=== PATIENT | female | born 1980 | race Caucasian/White ===

== ENCOUNTER 2017-01-05 18:29 | Emergency (ER) | payer MEDICAID ==
[~2017-01-05] VITALS: Ht 162.6 cm; Wt 66.0 kg
[~2017-01-05 18:29] MED LIST: ACET500C5 PO; CEPH-443 PO; CIPR500T4 PO; HYDR-3498 PO; IBUP-1542 PO; IBUP400T22 PO; PHEN-538 PO; PROM6.25 PO; [UNRECOGNIZED DRUG - CODE] VG
[2017-01-05 18:39] VITALS: Ht 162.6 cm; Wt 66.0 kg
[2017-01-05] MEDS ORDERED: FAMOTIDINE 20 MG INJ IV ONE (20:00)
[2017-01-05] MEDS ORDERED: LIDOCAINE/MYLANTA 40 ML BTL PO ONE (20:00)
[2017-01-05 20:13] LABS: URINE BLOOD (Dip) POC 2+ (NEGATIVE)
[2017-01-05 20:24] LABS: BASOPHILS % 0.5 % (0.0-2.0); EOSINOPHILS # 0.1 10^3/ul (0.0-0.5); EOSINOPHILS % 1.2 % (0.0-7.0); HEMOGLOBIN 13.5 g/dl (12.0-16.0); LYMPHOCYTES # 1.4 10^3/ul (0.8-2.9); LYMPHOCYTES % 16.1 % (15.0-51.0); MEAN CORPUSCULAR HEMOGLOBIN 29.1 pg (29.0-33.0); MEAN CORPUSCULAR HGB CONC 33.8 g/dl (32.0-37.0); MEAN CORPUSCULAR VOLUME 86.2 fl (82.0-101.0); MONOCYTE # 0.6 10^3/ul (0.3-0.9); MONOCYTES % 6.7 % (0.0-11.0); NEUTROPHILS % 75.3 % (39.0-77.0); PLATELET COUNT 263 10^3/UL (140-415); RED BLOOD COUNT 4.64 10^6/ul (4.20-5.40); RED CELL DISTRIBUTION WIDTH 12.1 % (11.5-14.5); WHITE BLOOD COUNT 8.5 10^3/ul (4.8-10.8)
[2017-01-05 20:36] LABS: ADD UMIC YES; UR ASCORBIC ACID 20 mg/dL (NEGATIVE); UR BILIRUBIN (Dip) NEGATIVE (NEGATIVE); UR BLOOD (Dip) 1+ mg/dL (NEGATIVE); UR CLARITY CLEAR (CLEAR); UR COLOR YELLOW (YELLOW); UR GLUCOSE (Dip) NEGATIVE (NEGATIVE); UR KETONES (Dip) NEGATIVE (NEGATIVE); UR LEUKOCYTE ESTERASE (Dip) 2+ Leu/ul (NEGATIVE); UR NITRITE (Dip) NEGATIVE (NEGATIVE); UR RBC 7 /HPF (0-5); UR SPECIFIC GRAVITY (Dip) 1.017 (1.003-1.030); UR SQUAMOUS EPITHELIAL CELL FEW /HPF (FEW); UR TOTAL PROTEIN (Dip) NEGATIVE (NEGATIVE); UR UROBILINOGEN (Dip) NEGATIVE (NEGATIVE)
[2017-01-05 20:51] LABS: ALBUMIN 4.3 g/dl (3.3-4.9); ALBUMIN/GLOBULIN RATIO 1.3; BILIRUBIN,INDIRECT 0.1 mg/dl (0-1.1); BILIRUBIN,TOTAL 0.1 mg/dl (0.2-1.3); CALCIUM 9.5 mg/dl (8.4-10.2); CREATININE 0.83 mg/dl (0.44-1.00); POTASSIUM 3.9 mmol/L (3.5-5.1); TOTAL PROTEIN 7.6 g/dl (6.1-8.1)
[2017-01-05 22:08] VITALS: TEMP 98.1
--- NOTE | 2017-01-05 22:35 | RADRPT ---
PROCEDURE: RENAL ULTRASOUND: CLINICAL INDICATION: 36 years of age, female . right flank pain . COMPARISON: None available. TECHNIQUE: Multiple transverse and longitudinal sonographic torrez scale images of the kidneys and adonay dder were obtained, supplemented with color, power, and spectral Doppler imaging. FINDINGS: Right kidney: Length: 9.2 cm. Appearance: Normal parenchymal appearance. Negative for hydronephrosis. Left kidney: Length: 9.5 cm. Appearance: Normal parenchymal appearance. Negative for hydronephrosis. Bladder: Normal. Ureteral jets: Present bilaterally. Additional comment: There is cholelithiasis. IMPRESSION: Normal renal ultrasound. Negative for evidence of renal calculi or hydronephrosis. Cholelithiasis. Please see gallbladder ultrasound reported separately. RPTAT: HCTS Physician Bello Date Time Electronically viewed and signed by Physician Bello on 01/05/2017 22:34 /
--- NOTE | 2017-01-05 22:38 | RADRPT ---
PROCEDURE: Limited ultrasound of the gallbladder. CLINICAL INDICATION: 36 years of age, female. Abdominal pain TECHNIQUE: Multiple real-time longitudinal and transverse images of the gallbladder and the bile d ucts were acquired utilizing a curved array transducer. Images were reviewed on a high-resolution [facility] workstation. COMPARISON: None available. FINDINGS: Pancreas: Visualized portions normal. Liver appearance: Mildly echogenic parenchyma Liver length: 14.9 cm Bile Ducts: Negative for intrahepatic biliary duct dilatation. Common bile duct measures at upper l imits of normal. CBD: 0.6 cm. Gallbladder: Multiple calculi layer dependently in the gallbladder. Gallbladder is moderately disten ded and gallbladder wall measures 2 mm. Main portal vein is patent with hepatopetal flow. Right kidney length: 10.1 cm. Right kidney appearance: Normal. Other: None. IMPRESSION: Cholelithiasis without evidence of acute cholecystitis. Common bile duct measures at the upper limi ts of normal without intrahepatic biliary duct dilatation. Recommend correlation with liver tests t o rule out biliary stasis. Mildly echogenic liver parenchyma and may indicate mild hepatic steatosis. RPTAT: HCTS Physician Bello Date Time Electronically viewed and signed by Physician Bello on 01/05/2017 22:37 /
[2017-01-05] MEDS ORDERED: FAMO-96 PO (23:03)
[2017-01-05 23:18] VITALS: BP 119/67; PULSE 66; RESP 16
--- NOTE | 2017-01-05 23:42 | ERD ---
ER Documentation Chief Complaint Date/Time DATE: 01/05/17 TIME: 23:39 Chief Complaint upper abd pain radaiting to back since 1 hour ago HPI 36-year-old female patient with no significant past medical history presents to the ED complaining of right-sided back pain and right and left upper abdominal pain that started intermittently for 2 hours. States that she ate a turkey sandwich and exacerbated her pain. Reports that this slightly feels like her kidney stones. States that she also has slight chest pain. Denies any family history of heart attacks. Denies any diarrhea, nausea, vomiting, constipation, fever, chills, wheezing, shortness of breath. ROS All systems reviewed and are negative except as per history of present illness. Medications Home Meds Active Scripts Famotidine* (Pepcid*) 20 Mg Tablet, 20 MG PO BID, #20 TAB Prov:FIFI ELLISON PA-C 01/05/17 Acetaminophen* (Tylophen*) 500 Mg Capsule, 1 CAP PO Q6H Y for PAIN AND OR ELEVATED TEMP, #20 CAP Prov:CJ MATUTE NP 11/17/15 Ibuprofen* (Motrin*) 600 Mg Tab, 600 MG PO Q6, #30 TAB Prov:CLAUDY FLORES PA-C 10/25/15 Hydrocodone Bit-Acetaminophen* ([place]*) 5-325 Mg Tab, 1 TAB PO Q6 Y for PAIN, # 7 TAB Prov:HELENA CARRANZA DO 05/22/15 Ciprofloxacin Hcl* (Ciprofloxacin Hcl*) 500 Mg Tablet, 500 MG PO BID for 5 Days , TAB Prov:HELENA CARRANZA DO 05/22/15 Promethazine w/Codeine* (Phenergan w/Codeine* Syrup) 5 Ml Syrup, 5 ML PO Q4H Y for COUGH, #8 OZ Prov:HELENA CARRANZA DO 03/25/15 Phenazopyridine Hcl* (Pyridium*) 200 Mg Tab, 200 MG PO TID Y for DYSURIA, #6 TAB Prov:KERRI GÓMEZ NP 02/12/15 Cephalexin* (Keflex*) 500 Mg Capsule, 500 MG PO QID for 10 Days, CAP Prov:KERRI GÓMEZ NP 02/12/15 Ibuprofen* (Ibuprofen*) 400 Mg Tablet, 400 MG PO Q6H Y for PAIN, #30 TAB Prov:KERRI GÓMEZ DIGITAL MEDIA ANALYST 02/12/15 Acetaminophen* (Tylophen*) 500 Mg Capsule, 500 MG PO Q6H Y for PAIN LEVEL 1-5, # 20 TAB Prov:ABBEY MATUTE 02/02/15 Tioconazole (Vagistat-1) 4.6 Gm Oin.pf.mari, 4.6 GM VG BID for 7 Days Prov:ABBEY MATUTE 02/02/15 Ciprofloxacin Hcl* (Ciprofloxacin Hcl*) 500 Mg Tablet, 500 MG PO BID for 7 Days , TAB Prov:ABBEY MATUTE 02/02/15 Allergies Allergies: Coded Allergies: No Known Allergy (Unverified , 02/12/15) PMhx/Soc History of Surgery: No Anesthesia Reaction: No Hx Neurological Disorder: No Hx Respiratory Disorders: No Hx Cardiac Disorders: No Hx Psychiatric Problems: No Hx Miscellaneous Medical Probl: Yes (nasal infection taking antibiotics) Hx Alcohol Use: No Hx Substance Use: No Hx Tobacco Use: No Smoking Status: Never smoker Physical Exam Vitals Vital Signs Date Time Temp Pulse Resp B/P Pulse Ox O2 Delivery O2 Flow Rate FiO2 01/05/17 23:18 66 16 119/67 99 Room Air 01/05/17 22:08 98.1 65 18 119/77 99 Room Air 01/05/17 18:39 98.5 68 20 129/85 99 Physical Exam Const: [id number], well-nourished. In no acute distress. Head: Atraumatic, normocephalic Eyes: Normal Conjunctiva without injection. No purulent discharge. ENT: Normal external ear, nose. Moist oropharynx without tonsillar exudates. Non -erythematous pharynx. Uvula midline. No drooling. No trismus. Neck: No cervical midline tenderness. Full range of motion. No meningismus. No cervical lymphadenopathy. No JVD. Resp: Clear to auscultation bilaterally. No wheezing, rhonchi, rales, or crackles. No accessory muscle use. No retractions. Cardio: Regular rate and rhythm. No murmurs, rubs or gallops. Abd: Soft, right and left upper quadrant tenderness, non distended. Normal bowel sounds. No palpable masses. No rebound tenderness. No guarding. Negative McBurney's point. Negative psoas sign. Negative obturator sign. Skin: No petechiae or rashes Back: No midline tenderness. No CVA tenderness. Ext: No cyanosis, or edema. Neur: Awake and alert. Normal gait. Normal coordination. Psych: Normal Mood and Affect Results 24 hrs Laboratory Tests Test 01/05/17 20:15 01/05/17 20:19 White Blood Count 8.510^3/ul Red Blood Count 4.6410^6/ul Hemoglobin 13.5g/dl Hematocrit 40.0% Mean Corpuscular Volume 86.2fl Mean Corpuscular Hemoglobin 29.1pg Mean Corpuscular Hemoglobin Concent 33.8g/dl Red Cell Distribution Width 12.1% Platelet Count 83085^3/UL Mean Platelet Volume 10.0fl Neutrophils % 75.3% Lymphocytes % 16.1% Monocytes % 6.7% Eosinophils % 1.2% Basophils % 0.5% Nucleated Red Blood Cells % 0.0/100WBC Neutrophils # (Manual) 610^3/ul Lymphocytes # 1.410^3/ul Monocytes # 0.610^3/ul Eosinophils # 0.110^3/ul Basophils # 0.010^3/ul Nucleated Red Blood Cells # 0.010^3/ul Urine Color YELLOW Urine Clarity CLEAR Urine pH 6.0 Urine Specific Jackson 1.017 Urine Ketones NEGATIVEmg/dL Urine Nitrite NEGATIVEmg/dL Urine Bilirubin NEGATIVEmg/dL Urine Urobilinogen NEGATIVEmg/dL Urine Leukocyte Esterase 2+Ami/ul Urine Microscopic RBC 7/HPF Urine Microscopic WBC 12/HPF Urine Squamous Epithelial Cells FEW/HPF Urine Hemoglobin 1+mg/dL Urine Glucose NEGATIVEmg/dL Urine Total Protein NEGATIVEmg/dl Sodium Level 143mmol/L Potassium Level 3.9mmol/L Chloride Level 98mmol/L Carbon Dioxide Level 28mmol/L Anion Gap 21 Blood Urea Nitrogen 16mg/dl Creatinine 0.83mg/dl Glucose Level 89mg/dl Calcium Level 9.5mg/dl Total Bilirubin 0.1mg/dl Direct Bilirubin 0.00mg/dl Indirect Bilirubin 0.1mg/dl Aspartate Amino Transf (AST/SGOT) 50IU/L Alanine Aminotransferase (ALT/SGPT) 48IU/L Alkaline Phosphatase 139IU/L Total Protein 7.6g/dl Albumin 4.3g/dl Globulin 3.30g/dl Albumin/Globulin Ratio 1.30 Lipase 128U/L Bedside Urine pH (LAB) 6.0 Bedside Urine Protein (LAB) Negative Bedside Urine Glucose (UA) Negative Bedside Urine Ketones (LAB) Negative Bedside Urine Blood 2+ Bedside Urine Nitrite (LAB) Negative Bedside Urine Leukocyte Esterase (L 3+ Current Medications Medications (Trade) Dose Ordered Sig/Sanket Route PRN Reason Start Time Stop Time Status Last Admin Dose Admin Famotidine (Pepcid Iv) 20 mg ONCE ONCE IV 01/05/17 20:00 01/05/17 20:01 DC 01/05/17 20:18 Miscellaneous Medication (Gi Cocktail (2)) 40 ml ONCE ONCE PO 01/05/17 20:00 01/05/17 20:01 DC 01/05/17 20:18 Procedures/MDM 36-year-old female patient with no significant past medical history presents to the ED complaining of right and left upper quadrant abdominal pain as well as right flank pain. Patient is afebrile and nontoxic-appearing. Patient has normal vital signs. Patient was further worked up with CBC, CMP, lipase, UA, urine , ultrasound of the gallbladder, renal ultrasound. Patient's pain and symptoms have improved after treatment with GI cocktail, Famotidine 20 mg IV. CBC: No leukocytosis. No e/o of systemic infection. No e/o anemia. CMP: No e/o severe acidosis, alkalosis, renal failure, diabetic ketoacidosis, liver disease Lipase within normal limits. Urine: No leukocyte esterase, no nitrites, no hematuria. Urine : negative EKG reviewed and interpreted by Dr. Davies Rate/Rhythm: [63 bpm, Normal Sinus Rhythm] No ectopy, no ST elevations, normal axis. QRS, ST, T-waves: [No changes consistent w/ acute ischemia] Impression: [No evidence of ischemia or arrhythmia] PROCEDURE: Limited ultrasound of the gallbladder. CLINICAL INDICATION: 36 years of age, female. Abdominal pain TECHNIQUE: Multiple real-time longitudinal and transverse images of the gallbladder and the bile ducts were acquired utilizing a curved array transducer. Images were reviewed on a high-resolution PACS workstation. COMPARISON: None available. FINDINGS: Pancreas: Visualized portions normal. Liver appearance: Mildly echogenic parenchyma Liver length: 14.9 cm Bile Ducts: Negative for intrahepatic biliary duct dilatation. Common bile duct measures at upper limits of normal. CBD: 0.6 cm. Gallbladder: Multiple calculi layer dependently in the gallbladder. Gallbladder is moderately distended and gallbladder wall measures 2 mm. Main portal vein is patent with hepatopetal flow. Right kidney length: 10.1 cm. Right kidney appearance: Normal. Other: None. IMPRESSION: Cholelithiasis without evidence of acute cholecystitis. Common bile duct measures at the upper limits of normal without intrahepatic biliary duct dilatation. Recommend correlation with liver tests to rule out biliary stasis. Mildly echogenic liver parenchyma and may indicate mild hepatic steatosis. PROCEDURE: RENAL ULTRASOUND: CLINICAL INDICATION: 36 years of age, female . right flank pain . COMPARISON: None available. TECHNIQUE: Multiple transverse and longitudinal sonographic torrez scale images of the kidneys and bladder were obtained, supplemented with color, power, and spectral Doppler imaging. FINDINGS: Right kidney: Length: 9.2 cm. Appearance: Normal parenchymal appearance. Negative for hydronephrosis. Left kidney: Length: 9.5 cm. Appearance: Normal parenchymal appearance. Negative for hydronephrosis. Bladder: Normal. Ureteral jets: Present bilaterally. Additional comment: There is cholelithiasis. IMPRESSION: Normal renal ultrasound. Negative for evidence of renal calculi or hydronephrosis. Cholelithiasis. Please see gallbladder ultrasound reported separately. Patient symptoms could likely be secondary to cholelithiasis versus gastritis. Low suspicion for cholecystitis, choledocholithiasis, cholangitis, pancreatitis , appendicitis, bowel obstruction, ileus, volvulus, nephrolithiasis, pyelonephritis, hepatitis, perforated viscus, diverticulitis, abdominal hernia, acute abdomen, mesenteric ischemia or other emergent conditions. Low suspicion for acute myocardial infarction, pneumothorax, pneumonia, cardiac tamponade, pulmonary embolism, AAA, aortic dissection, Boerhaave's syndrome, cardiac dysrhythmias,meningitis, intracranial bleed, seizure, stroke, TIA or other emergent conditions. Discharge medications: Pepcid Follow up with primary care physician in 1-2 days for referral to cutlet maker [facility]. Instructed patient to return to the ED sooner for any worsening symptoms. Patient's questions were answered. Patient understood and agreed with discharge plan. Patient discharged stable. Departure Diagnosis: Primary Impression: Abdominal pain Abdominal location: right upper quadrant Qualified Code: R10.11 - Right upper quadrant abdominal pain Condition: Stable Patient Instructions: Abdominal Pain, Biliary Colic With Gallstone (Confirmed) , Gastritis Vs. Ulcer Referrals: [facility] YOU HAVE RECEIVED A MEDICAL SCREENING EXAM AND THE RESULTS INDICATE THAT YOU DO NOT HAVE A CONDITION THAT REQUIRES URGENT TREATMENT IN THE EMERGENCY DEPARTMENT. FURTHER EVALUATION AND TREATMENT OF YOUR CONDITION CAN WAIT UNTIL YOU ARE SEEN IN YOUR DOCTORS OFFICE WITHIN THE NEXT 1-2 DAYS. IT IS YOUR RESPONSIBILITY TO MAKE AN APPOINTMENT FOR FOLOW-UP CARE. IF YOU HAVE A PRIMARY DOCTOR --you should call your primary doctor and schedule an appointment IF YOU DO NOT HAVE A PRIMARY DOCTOR YOU CAN CALL OUR PHYSICIAN REFERRAL HOTLINE AT IF YOU CAN NOT AFFORD TO SEE A PHYSICIAN YOU CAN CHOSE FROM THE FOLLOWING [facility] [id number] [facility]. [facility] [address] [facility]. [facility] [address] [facility] [facility] [facility] [address] [facility] [address] [facility]. [facility] [address] [facility] [facility] YOU HAVE RECEIVED A MEDICAL SCREENING EXAM AND THE RESULTS INDICATE THAT YOU DO NOT HAVE A CONDITION THAT REQUIRES URGENT TREATMENT IN THE EMERGENCY DEPARTMENT. FURTHER EVALUATION AND TREATMENT OF YOUR CONDITION CAN WAIT UNTIL YOU ARE SEEN IN YOUR DOCTORS OFFICE WITHIN THE NEXT 1-2 DAYS. IT IS YOUR RESPONSIBILITY TO MAKE AN APPOINTMENT FOR FOLOW-UP CARE. IF YOU HAVE A PRIMARY DOCTOR --you should call your primary doctor and schedule and appointment IF YOU DO NOT HAVE A PRIMARY DOCTOR YOU CAN CALL OUR PHYSICIAN REFERRAL HOTLINE AT . IF YOU CAN NOT AFFORD TO SEE A PHYSICIAN YOU CAN CHOSE FROM THE FOLLOWING [facility]: [facility] [address] [place] [address] [facility] [address] [place] [address] [facility] + [facility] [address] [place] [address] [facility] Additional Instructions: Call your primary care doctor TOMORROW for an appointment during the next 1-2 days for a referral to a cutlet maker [facility]. See the doctor sooner or return here if your condition worsens before your appointment time. FIFI ELLISON PA-C Jan 05, 2017 23:42 days for a referral to a cutlet maker [facility]. See the doctor sooner or return here if your condition worsens before your appointment time. FIFI ELLISON PA-C Jan 05, 2017 23:42
== END 2017-01-05 23:19 | disposition home or self-care (01) ==
LOC: FTE 18:29
DX: R10.11 Right upper quadrant pain (principal)
CPT/HCPCS: 36415; 76705; 76775; 80053; 81001; 83690; 85025; 93005; 96374; Z7502; Z7610; 81003

== ENCOUNTER 2017-11-05 13:27 | Emergency (ER) | END 2017-11-05 16:29 | disposition home or self-care (01) ==